=== PATIENT | male | born 1980 | race Caucasian/White ===

== ENCOUNTER 2024-02-09 11:19 | Emergency (ER) | payer BC, SELFPAY ==
[2024-02-09 11:25] VITALS: BP 161/104
[2024-02-09 12:12] VITALS: BP 161/94
[2024-02-09] MEDS: NSS 1000 IV (12:46)
[2024-02-09] MEDS: REGLAN 10 MG IV (12:46)
[2024-02-09] MEDS: TORADOL 30 MG IV (12:46)
[2024-02-09 13:00] VITALS: BP 128/77
[2024-02-09 13:13] LABS: % Basophils 0.5 % (0-2); % Immature Granulocytes 0.6 % (0-0.5); % Lymphocytes 18.9 % (20.5-51.1); % Monocytes 5.3 % (1.7-9.3); % Neutrophils 73.7 % (42.2-75.2); Absolute Eosinophils 0.1 10^3/uL (0-0.7); Absolute Immature Granulocytes 0.1 10^3/uL (0-0.05); Absolute Lymphocytes 1.6 10^3/uL (1.2-3.4); Absolute Monocytes 0.5 10^3/uL (0.1-0.6); Absolute Neutrophils 6.4 10^3/uL (1.4-6.5); Hematocrit 45.4 % (39.0-52.0); Hemoglobin 15.7 g/dL (13.0-18.0); Mean Corp Hgb Conc. 34.6 g/dL (33.0-37.0); Mean Corpuscular Volume 89.7 fL (80.0-94.0); Mean Platelet Volume 11.1 fL (7.4-10.4); Nucleated Red Blood Cells % 0 % (-); Platelet Count 242 10^3/uL (130-400); Red Blood Cell Count 5.06 10^6/uL (4.70-6.10); Red Cell Dist. Width 13.2 % (11.5-14.5); White Blood Cell Count 8.7 10^3/uL (4.8-10.8)
[2024-02-09 13:22] LABS: Blood Urea Nitrogen 15 mg/dl (9-20); Calcium 10.3 mg/dl (8.4-10.2); Carbon Dioxide 25 mmol/L (22-30); Chloride 104 mmol/L (98-107); Glucose 104 mg/dl (70-99); Potassium 4.6 mmol/L (3.5-5.1); Sodium 139 mmol/L (135-145); eGFR > 60.00
[2024-02-09 13:29] LABS: Erythrocyte Sed Rate 9 mm/hour (0-20)
--- NOTE | 2024-02-09 15:18 | ED.GENMED ---
History of Present Illness
<Isaac Still Jr., PA-C - Last Filed: 02/09/24 15:23>
General
Chief Complaint: Headache
Source: patient, spouse and family
Exam Limitations: none
Time Seen by Provider: 02/09/24 12:04
Nursing documentation reviewed up to this point in time: agreed with
Travel History
Have you had any contact with someone who has COVID-19?: No
Do you have any symptoms of coronavirus? Fever > 100 degrees, chills, cough, shortness of breath, sore throat, loss of taste or smell, muscle aches, or headache?: No
History of Present Illness
History of Present Illness:
43-year-old male with no significant past medical history presenting to the emergency department today with concerns of ongoing intermittent confusion blurred vision and discomfort to the left side of his head over the past year and a half after
hitting the side of his head during a accident while [place]. Has been having intermittent headaches since. Denies significant worsening recently but feels he needs additional assessment. Denies specific numbness weakness.
Past History
<Isaac Still Jr., PA-C - Last Filed: 02/09/24 15:23>
Past History
ED Past Medical History: None
ED Past Surgical History: None
Social History
Tobacco: Non-smoker
Alcohol: None
Review of Systems
<Isaac Still Jr., PA-C - Last Filed: 02/09/24 15:23>
Review of Systems
Allergies reviewed?: Yes
All Other Systems: ROS reviewed and negative except as documented in HPI and ROS
Phy Exam
<Isaac Still Jr., PA-C - Last Filed: 02/09/24 15:23>
Physical Exam
Physical Exam:
GENERAL: Alert , in no apparent distress
EYE: pupils equal and reactive
NECK: Supple, no significant adenopathy.
ENT: o/p clr, mmm.
CARDIAC: Regular rate and rhythm .
LUNGS: Clear breath sounds bilaterally, no acute respiratory distress, no wheezes/rales/rhonchi
ABDOMEN: Soft, without focal tenderness, no r/g, no cvat
NEUROLOGICAL: Alert and oriented, no focal neuro deficits 5 out of 5 upper and lower tract normal sensation with palpating bilaterally normal finger-nose no pronator drift
SKIN: Warm and dry, skin intact.
MUSCULOSKELETAL: No edema, well perfused.
PSYCH: Normal and appropriate interaction.
Course
<Isaac Still Jr., PA-C - Last Filed: 02/09/24 15:23>
Orders/Labs/Results
Orders:
Orders
02/09/24 12:25
CT Head W/o Iv Contrast Urgent
Comment:
Reason For Exam: left sided MCKINNEY worseing for a yearm blurred vision
0.9% Sodium Chloride 1000 ml [Nss] 1,000 ml IV BOLUS
Ketorolac [Toradol] 30 mg IV NOW STA
Metoclopramide [Reglan] 10 mg IV NOW STA
02/09/24 12:57
Basic Metabolic Panel Urgent
Complete Blood Count/With Diff Urgent
Erythrocyte Sed Rate Urgent
Lyme Progressive Urgent
Abnormal Lab Results
02/09/24
12:57
MPV 11.1 H fL
(7.4-10.4)
Abs Immat Gran (auto) 0.1 H 10^3/uL
(0-0.05)
Immature Gran % 0.6 H %
(0-0.5)
Lymphocytes % 18.9 L %
(20.5-51.1)
Glucose 104 H mg/dl
(70-99)
Calcium 10.3 H mg/dl
(8.4-10.2)
02/09/24 12:57
02/09/24 12:57
Vital Signs
Initial and Last Documented VS:
Initial Vital Signs
Temp Pulse Resp BP Pulse Ox
99.3 F 100 20 161/104 98
02/09/24 11:25 02/09/24 11:25 02/09/24 11:25 02/09/24 11:25 02/09/24 11:25
Last Documented Vital Signs
Temp Pulse Resp BP Pulse Ox
99.3 F 83 20 125/72 98
02/09/24 11:25 02/09/24 15:32 02/09/24 11:25 02/09/24 15:32 02/09/24 11:25
<Aydee Smith BIRD SITTER - Last Filed: 02/12/24 10:18>
Orders/Labs/Results
Orders:
Orders
02/09/24 12:25
CT Head W/o Iv Contrast Urgent
Comment:
Reason For Exam: left sided MCKINNEY worseing for a yearm blurred vision
0.9% Sodium Chloride 1000 ml [Nss] 1,000 ml IV BOLUS
Ketorolac [Toradol] 30 mg IV NOW STA
Metoclopramide [Reglan] 10 mg IV NOW STA
02/09/24 12:57
Basic Metabolic Panel Urgent
Complete Blood Count/With Diff Urgent
Erythrocyte Sed Rate Urgent
Lyme Progressive Urgent
Abnormal Lab Results
02/09/24
12:57
MPV 11.1 H fL
(7.4-10.4)
Abs Immat Gran (auto) 0.1 H 10^3/uL
(0-0.05)
Immature Gran % 0.6 H %
(0-0.5)
Lymphocytes % 18.9 L %
(20.5-51.1)
Glucose 104 H mg/dl
(70-99)
Calcium 10.3 H mg/dl
(8.4-10.2)
02/09/24 12:57
02/09/24 12:57
Vital Signs
Initial and Last Documented VS:
Initial Vital Signs
Temp Pulse Resp BP Pulse Ox
99.3 F 100 20 161/104 98
02/09/24 11:25 02/09/24 11:25 02/09/24 11:25 02/09/24 11:25 02/09/24 11:25
Last Documented Vital Signs
Temp Pulse Resp BP Pulse Ox
99.3 F 83 20 125/72 98
02/09/24 11:25 02/09/24 15:32 02/09/24 11:25 02/09/24 15:32 02/09/24 11:25
<Isaac Still Jr., PA-C - Last Filed: 02/09/24 15:23>
MDM/Problems Addressed
MDM/Problems Addressed:
43-year-old male presenting to the emergency department with concerns of a headache lasting roughly a year upon arrival patient in no distress afebrile heart rate in the 90s on my exam labs obtained unremarkable ESR is normal making giant cell
arteritis very unlikely head CT is negative mass or significant chronic subdural unlikely as well. No signs of meningismus no fever no neck stiffness. Patient was otherwise given information for close neurology follow-up return precautions given.
<Aydee Smith NP - Last Filed: 02/12/24 10:18>
MDM/Problems Addressed
MDM/Problems Addressed:
43-year-old male presenting to the emergency department with concerns of a headache lasting roughly a year upon arrival patient in no distress afebrile heart rate in the 90s on my exam labs obtained unremarkable ESR is normal making giant cell
arteritis very unlikely head CT is negative mass or significant chronic subdural unlikely as well. No signs of meningismus no fever no neck stiffness. Patient was otherwise given information for close neurology follow-up return precautions given.
02/12/2024 10:17 AM: Patient notified of presumptively positive Lyme result. Western blot pending. Prescription for doxycycline 100 mg twice daily x 21 days sent to his pharmacy.
<Isaac Still Jr., PA-C - Last Filed: 02/09/24 15:23>
*Critical Care Note
Total Time (30-74mins, 75-104mins- exclusive of procedures): Not Applicable
ED Attending Note
<Isaac Still Jr., PA-C - Last Filed: 02/09/24 15:23>
-
Portions of this chart may have been created with voice recognition software.� Occasional wrong word or��sound alike� substitutions may have occurred due to the inherent limitations of voice recognition software.
Discharge Plan
Departure
Patient Disposition: Home (Routine Discharge)
Date of Disposition: 02/09/24
Time of Disposition: 15:20
Patient with high blood pressure during this ER visit?: No
Condition: Good
Covid-19: Not Applicable
Discharge Problem:
Headache
Instructions: Headache, Adult (DC)
Prescriptions:
New
metoclopramide HCl [Reglan] 10 mg tablet
10 mg PO Q6H PRN (Reason: nausea and vomiting) Qty: 7 0RF
doxycycline hyclate 100 mg capsule
100 mg PO BID Qty: 42 0RF
No Action
ketorolac 10 MG tablet
10 mg PO Q8HPRN PRN (Reason: pain) Qty: 15 0RF
oxycodone-acetaminophen 5 MG/325 MG tablet
1 tab PO Q6HPRN PRN (Reason: pain) Qty: 14 0RF
Referrals:
Brandon Panda MD [Active] - Follow up in 10 days
José Miguel Van DO [Family Provider] -
Stand Alone Forms: Return to Work
Activity Restrictions/Additional Instructions:
You came to the emergency department today with concerns of ongoing headache. Please follow-up closely with neurology and immediately return for any worsening, new or concerning symptoms.
Interventions
Interventions:
*Risk Screen - Suicide Last Done: 02/09/24 11:25
*General Assessment Last Done: 02/09/24 11:25
*Neglect/Abuse Screening Last Done: 02/09/24 11:25
*Nursing Disposition Last Done: 02/09/24 15:32
ED- Neurological Assessment Last Done: 02/09/24 13:27
Discharge Date and Time
Discharge Date/Time: 02/09/24 15:33
Print Language: [id number]
[2024-02-09 15:32] VITALS: BP 125/72
[2024-02-11 15:50] LABS: Lyme Antibody Screen, EIA Presump. Positive (Negative)
[2024-02-13 17:43] LABS: Lyme Ab Western Blot IgG Positive (Negative); Lyme Ab Western Blot IgM Negative (Negative)
== END 2024-02-09 15:33 | disposition home or self-care (01) ==
LOC: EMR 11:19
PROVIDERS: Physician Assistant; EMERGENCY PHYSICIAN Emergency Medicine; FAMILY PHYSICIAN Family Medicine
DX: R51.9 Headache, unspecified (principal); S09.90XD Unspecified injury of head, subsequent encounter; V69.9XXD Occupant (driver) (passenger) of heavy transport vehicle injured in unspecified traffic accident, subsequent encounter; Y99.0 Civilian activity done for income or pay
CPT/HCPCS: 70450; 80048; 85025; 85652; 86617; 86618; 96361; 96374; 96375; 99284